=== PATIENT | female | born 1995 | race Caucasian/White ===

== ENCOUNTER → 2020-04-29 09:27 | Outpatient (BNVA) | payer SELFPAY | PROVIDERS: Visit Provider Family Medicine | DX: R53.83 Other fatigue (principal); F12.10 Cannabis abuse, uncomplicated; Z71.89 Other specified counseling | CPT/HCPCS: 80053; 82607; 83540; 84443; 85025 ==

== ENCOUNTER → 2021-08-05 15:10 | Outpatient (BNVA) | payer SELFPAY | PROVIDERS: Visit Provider Nurse Practitioner | DX: R50.9 Fever, unspecified (principal); B34.9 Viral infection, unspecified | CPT/HCPCS: 87631; 87635; 87880 ==

== ENCOUNTER → 2022-07-16 13:38 | Outpatient (BNVA) | payer BC, MEDICAID, SELFPAY | PROVIDERS: PCP Family Medicine; Visit Provider Obstetrics & Gynecology | DX: Z01.419 Encounter for gynecological examination (general) (routine) without abnormal findings (principal); N63.0 Unspecified lump in unspecified breast | CPT/HCPCS: 88175 ==

== ENCOUNTER → 2022-07-30 13:20 | Outpatient (BNVA) | payer BC, SELFPAY | PROVIDERS: PCP Family Medicine; Visit Provider Family Medicine | DX: F90.0 Attention-deficit hyperactivity disorder, predominantly inattentive type (principal); L65.9 Nonscarring hair loss, unspecified; Q82.5 Congenital non-neoplastic nevus | CPT/HCPCS: 80053; 80061; 84439; 84443; 85025 ==

== ENCOUNTER 2022-08-11 15:13 | Outpatient (CLI) | payer BC, MEDICAID, SELFPAY ==
--- NOTE | 2022-08-11 15:15 | US_ITS ---
WS: [id number] ULTRASOUND BREAST LEFT TECHNIQUE: Ultrasound left breast focused area of concern. CLINICAL INFORMATION: N63.0 - Unspecified lump in unspecified breast COMPARISON: None. FINDINGS: Ultrasound LEFT breast area of concern at the 1:00 and 2:00 o'clock position. Normal underlying paren chymal tissue. No cystic or solid lesions. No suspicious findings. No other abnormalities. US/US breast LT limited* [id number] IMPRESSION: Normal ultrasound in the area of concern. BI-RADS 1 negative Recommend annual mammography age 40
== END 2022-08-11 15:14 | disposition home or self-care (01) ==
PROVIDERS: PCP Family Medicine; Visit Provider Obstetrics & Gynecology
DX: N63.20 Unspecified lump in the left breast, unspecified quadrant (principal)
CPT/HCPCS: 76642

== ENCOUNTER → 2022-10-16 14:46 | Outpatient (BNVA) | payer BC, MEDICAID, SELFPAY | PROVIDERS: PCP Family Medicine; Visit Provider Family Medicine | DX: E87.6 Hypokalemia (principal); F90.9 Attention-deficit hyperactivity disorder, unspecified type; Z91.018 Allergy to other foods; F41.1 Generalized anxiety disorder | CPT/HCPCS: 80048; 82306; 82607 ==

== ENCOUNTER → 2023-01-14 15:15 | Outpatient (BNVA) | payer BC, MEDICAID, SELFPAY | PROVIDERS: PCP Family Medicine; Visit Provider Family Medicine | DX: I49.9 Cardiac arrhythmia, unspecified (principal); R00.2 Palpitations; R07.9 Chest pain, unspecified; E55.9 Vitamin D deficiency, unspecified; E87.6 Hypokalemia; F90.0 Attention-deficit hyperactivity disorder, predominantly inattentive type | CPT/HCPCS: 85025 ==

== ENCOUNTER → 2023-01-15 11:38 | Outpatient (BNVA) | payer BC, MEDICAID, SELFPAY | PROVIDERS: PCP Family Medicine; Visit Provider Family Medicine | DX: I49.9 Cardiac arrhythmia, unspecified (principal); R00.2 Palpitations; R07.9 Chest pain, unspecified; E55.9 Vitamin D deficiency, unspecified; E87.6 Hypokalemia; F90.0 Attention-deficit hyperactivity disorder, predominantly inattentive type | CPT/HCPCS: 80053; 82306; 82607; 82746; 83735; 84439; 84443; 85025 ==

== ENCOUNTER → 2023-04-08 16:00 | Outpatient (BNVA) | payer BC, MEDICAID, SELFPAY | PROVIDERS: PCP Family Medicine; Visit Provider Family Medicine | DX: L65.9 Nonscarring hair loss, unspecified (principal); R68.82 Decreased libido | CPT/HCPCS: 82672; 83001; 83002; 84144; 84146 ==

== ENCOUNTER 2023-04-23 06:51 | Outpatient (CLI) | payer BC, MEDICAID, SELFPAY ==
--- NOTE | 2023-04-23 07:00 | US_ITS ---
WS: [id number] RIGHT UPPER QUADRANT ULTRASOUND HISTORY: R10.11 - Right upper quadrant pain COMPARISON: None available. Liver: 13.7 cm in length. Normal size liver and echogenicity. No bile duct dilatation or mass. Portal Vein: Normal hepatopetal flow with monophasic waveform. Gallbladder: Normally distended gallbladder with no stones or wall thickening. CBD: 0.2 cm Pancreas: Normal size and echogenicity. Right kidney: 11.3 cm in length. Normal size and echogenicity. No hydronephrosis or mass. Aorta and IVC: Unremarkable abdominal aorta and IVC. No ascites. IMPRESSION: Normal RIGHT upper quadrant ultrasound.
== END 2023-04-23 06:52 | disposition home or self-care (01) ==
LOC: RAD 06:51
PROVIDERS: PCP Family Medicine; Visit Provider Family Medicine
DX: R10.11 Right upper quadrant pain (principal); R14.0 Abdominal distension (gaseous)
CPT/HCPCS: 76705

== ENCOUNTER 2023-09-13 09:34 | Outpatient (CLI) | payer BC, MEDICAID, SELFPAY ==
--- NOTE | 2023-09-13 09:39 | MR_ITS ---
WS: [id number] MRI HEAD WITH CONTRAST WITH ATTENTION TO THE INTERNAL AUDITORY CANALS TECHNIQUE: Sagittal T1, T2 axial, T2 axial flair, axial susceptibility weighted imaging, axial diffus ion weighted images, and coronal T2 images were obtained. Pre and post T1 axial and post T1 coronal i mages. ADC and FSPGR images. Post gadolinium images with attention to the internal auditory canals. A xial fiesta imaging. CLINICAL INFORMATION: DIZZINESS GIDDINESS/TINNITUS,BILATERAL COMPARISON: None. FINDINGS: No evidence of restricted diffusion to suggest acute ischemia. Ventricular system and basal cisterns are patent. No suspicious intracranial signal normalities. Normal abernathy-white differentiation. Normal posterior fossa. Normal vascular flow voids at the skull base. No extra-axial fluid collections. No e vidence of mass or mass effect. No hemosiderin on the susceptibility weighted images. Proximal 7th and 8th cranial nerves are normal in appearance. Normal trigeminal nerve root entry zones. No evidence of enhancing IAC or CP angle mas s. Paranasal sinuses and mastoid air cells are well aerated. Normal posterior nasopharynx. No abnormal intracranial enhancement. Normal dural venous sinuses. IMPRESSION: 1. No evidence of restricted diffusion to suggest acute ischemia. 2. Proximal 7th and 8th cranial nerves are normal in appearance. 3. No evidence of enhancing IAC or CP angle mass. 4. Normal trigeminal nerve root entry zones. 5. Paranasal sinuses and mastoid air cells are well aerated. 6. No other suspicious findings.
[2023-09-13] MEDS: gadobenate dimeglumine 20 mL vial IV (10:38)
== END 2023-09-13 09:35 | disposition home or self-care (01) ==
LOC: RAD 09:35
PROVIDERS: PCP Family Medicine; Visit Provider Specialist
DX: R42 Dizziness and giddiness (principal); H93.13 Tinnitus, bilateral
CPT/HCPCS: 70553; A9577

== ENCOUNTER → 2024-01-20 18:54 | Outpatient (BNVA) | payer BC, MEDICAID, SELFPAY | PROVIDERS: PCP Family Medicine; Visit Provider Registered Nurse Neonatal Intensive Care | DX: R39.9 Unspecified symptoms and signs involving the genitourinary system (principal) | CPT/HCPCS: 81000 ==